=== PATIENT | male | born 1990 | race Caucasian/White ===

== ENCOUNTER 2021-07-05 15:14 | Emergency (ER) | payer SELFPAY ==
[2021-07-05 15:25] VITALS: BP 143/77
--- NOTE | 2021-07-05 16:17 | XRay Report ---
Right wrist-3 views Right hand-3 views INDICATION: injury. COMPARISON: None available. IMPRESSION: No acute osseous abnormality in the wrist or hand. Normal alignment. No significant DJD . Soft tissues are unremarkable. Signer Name: Wil Hollins MD Signed: 07/05/2021 4:12 PM Workstation Name: [id number]
[2021-07-05] MEDS ORDERED: HYDROcodone/ACETAMINOPHEN 5-325 MG TAB PO ONE (17:50)
--- NOTE | 2021-07-05 17:57 | Emergency Department Report ---
ED Upper Extremity Inj HPI - General Chief Complaint: Extremity Injury, Upper Stated Complaint: WRIST ARM BROKEN Time Seen by Provider: 07/05/21 17:50 Source: patient, [employer] Mode of arrival: Ambulatory Limitations: Language Barrier - History of Present Illness Initial Comments: Language interpretation by Ms. Soni, elementary secretary and by patient's friend with patient's permission Patient is a 31-year-old male presents emergency room complaints of a right hand injury that occurred earlier today. Patient was using a wrench that was connected to a piece of equipment and got hit in the hand. Since then he began having hand pain and swelling and some pain in the wrist. He denies ever injuring the past. He denies any numbness or weakness. He has increased pain with movement. No past medical history. No allergies to medications. - Related Data Previous Rx's Medication Instructions Recorded Last Taken Type Acetaminophen/Codeine [Tylenol 1 tab PO Q6H PRN #12 tab 07/05/21 Unknown Rx /Codeine # 3 tab] Ibuprofen [Motrin 600 MG tab] 600 mg PO Q8H PRN #20 tablet 07/05/21 Unknown Rx Allergies Allergy/AdvReac Type Severity Reaction Status Date / Time No Known Allergies Allergy Verified 07/05/21 15:25 ED Review of Systems ROS: Stated complaint: WRIST ARM BROKEN Other details as noted in HPI Comment: All other systems reviewed and negative ED Past Medical Hx - Medications Home Medications: Home Medications Medication Instructions Recorded Confirmed Last Taken Type Acetaminophen/Codeine [Tylenol 1 tab PO Q6H PRN #12 tab 07/05/21 Unknown Rx /Codeine # 3 tab] Ibuprofen [Motrin 600 MG tab] 600 mg PO Q8H PRN #20 tablet 07/05/21 Unknown Rx ED Physical Exam - General Limitations: Language Barrier General appearance: alert, in no apparent distress - Head Head exam: Present: atraumatic, normocephalic - Eye Eye exam: Present: normal appearance - ENT ENT exam: Present: mucous membranes moist - Extremities Exam Extremities exam: Present: other (ttp and edema present to the right palmar hand, there is snuffbox ttp, pt has decreased ROM secondary to pain and swelling, compartments are soft, 2+ distal pulses, brisk cap refill, sensation intact) - Neurological Exam Neurological exam: Present: alert, oriented X3 - Psychiatric Psychiatric exam: Present: normal affect, normal mood - Skin Skin exam: Present: warm, dry, intact ED Course Vital Signs 07/05/21 15:24 Temperature 98.2 F Pulse Rate 60 Respiratory 20 Rate Blood Pressure 143/77 [Left] O2 Sat by Pulse 100 Oximetry ED Medical Decision Making - Radiology Data Radiology results: report reviewed Ordering Physician: HIRAL GREENBERG MD Date of Service: 07/05/21 Procedure(s): XR hand 3+V RT Accession Number(s): [id number] cc: HIRAL GREENBERG MD Fluoro Time In Minutes: Right wrist-3 views Right hand-3 views INDICATION: injury. COMPARISON: None available. IMPRESSION: No acute osseous abnormality in the wrist or hand. Normal alignment. No significant DJD. Soft tissues are unremarkable. Signer Name: Wil Hollins MD Signed: 07/05/2021 4:12 PM Workstation Name: [id number] Transcribed By: CATERINA Dictated By: Wil Hollins MD Electronically Authenticated By: Wil Hollins MD Signed Date/Time: 07/05/211611 DD/ 11 TD/TT: - Medical Decision Making Language interpretation by Nae, elementary secretary and by patient's friend with patient's permission Patient is a 31-year-old male presents emergency room complaints of a right hand injury that occurred earlier today. Patient was using a wrench that was connected to a piece of equipment and got hit in the hand. Since then he began having hand pain and swelling and some pain in the wrist. He denies ever injuring the past. He denies any numbness or weakness. He has increased pain with movement. No past medical history. No allergies to medications. Vitals are stable. On exam:ttp and edema present to the right palmar hand, there is snuffbox ttp, pt has decreased ROM secondary to pain and swelling, compartments are soft, 2+ distal pulses, brisk cap refill, sensation intact. X-ray right wrist and hand IMPRESSION: No acute osseous abnormality in the wrist or hand. Normal alignment. No significant DJD. Soft tissues are unremarkable. Discussed all findings with patient. Given that patient is having snuffbox tenderness, patient placed in thumb spica splint and will be referred to orthopedic doctor for further evaluation. Advised patient Please take medication as prescribed as needed for pain. Follow-up with orthopedic doctor for further evaluation. Return to emergency room for any new or worsening symptoms. Critical care attestation.: If time is entered above; I have spent that time in minutes in the direct care of this critically ill patient, excluding procedure time. ED Disposition Clinical Impression: Injury of right hand Qualifiers: Encounter type: initial encounter Qualified Code(s): S69.91XA - Unspecified injury of right wrist, hand and finger(s), initial encounter Disposition: HOME / SELF CARE / HOMELESS Is pt being admited?: No Does the pt Need Aspirin: No Condition: Stable Instructions: Crush Injury of the Hand, Hand Contusion Additional Instructions: Please take medication as prescribed as needed for pain. Follow-up with orthopedic doctor for further evaluation. Return to emergency room for any new or worsening symptoms. [employer] los medicamentos recetados segn sea necesario para el dolor. Seguimiento con un mdico ortopdico para lisa evaluacin adicional. Regrese a la marcy de emergencias por cualquier sntoma nuevo o que empeore. Prescriptions: Ibuprofen [Motrin 600 MG tab] 600 mg PO Q8H PRN #20 tablet PRN Reason: Pain Acetaminophen/Codeine [Tylenol /Codeine # 3 tab] 1 tab PO Q6H PRN #12 tab PRN Reason: pain Referrals: CARLOS MARSHALL MD [Staff Physician] - 3-5 Days Time of Disposition: 17:56 Print Language: ALBANIAN
== END 2021-07-06 05:43 | disposition home or self-care (01) ==
LOC: ED 15:14
DX: S69.91XA Unspecified injury of right wrist, hand and finger(s), initial encounter (principal); W22.8XXA Striking against or struck by other objects, initial encounter; Y93.89 Activity, other specified; Y92.89 Other specified places as the place of occurrence of the external cause; Y99.8 Other external cause status
CPT/HCPCS: 99283